=== PATIENT | female | born 1970 | race Caucasian/White ===

== ENCOUNTER 2022-01-07 12:09 | Emergency (ER) | payer MEDICAID ==
[~2022-01-07] VITALS: Ht 157.5 cm; Wt 79.0 kg
[2022-01-07 12:43] VITALS: BP 158/82
[2022-01-07] MEDS ORDERED: HYDROCODONE/ACETAMINOPHEN 5/325MG TABLET PO STA (13:18)
[2022-01-07] MEDS ORDERED: TRAM50TA3 PO (15:22)
[2022-01-07] MEDS ORDERED: NAPR-681 PO (15:22)
== END 2022-01-07 15:37 | disposition home or self-care (01) ==
LOC: ER 12:09
DX: M25.511 Pain in right shoulder (principal); M25.531 Pain in right wrist; E11.9 Type 2 diabetes mellitus without complications; I10 Essential (primary) hypertension
CPT/HCPCS: 73030; 81025; 99283

== ENCOUNTER 2023-11-16 10:33 | Emergency (ER) | payer MEDICAID ==
[~2023-11-16] VITALS: Ht 157.5 cm; Wt 81.6 kg
[~2023-11-16 10:33] MED LIST: NAPR-681 PO; TRAM50TA3 PO
[2023-11-16 10:54] VITALS: O2SAT 100
[2023-11-16 11:10] LABS: BASOPHILS % 0.6 % (0.0-2.0); EOSINOPHILS % 4.3 % (0.0-5.0); HEMATOCRIT. 36.6 % (36.0-48.0); HEMOGLOBIN. 12.5 g/dL (12.0-16.0); LYMPHOCYTES % 28.1 % (20.0-50.0); MEAN CORPUSCULAR VOLUME 88.3 fL (81.0-99.0); MEAN PLATELET VOLUME 8.2 fl (7.4-10.4); MONOCYTES % 7.3 % (2.0-8.0); NEUTROPHILS % 59.7 % (40.0-76.0); PLATELET 258 x1000/uL (130-400); RED BLOOD CELL COUNT 4.15 mill/uL (4.2-5.4); RED CELL DISTRIBUTION WIDTH 16.2 % (11.6-14.6); WHITE BLOOD COUNT 9.7 x1000/uL (4.5-11.0)
[2023-11-16 11:27] LABS: CARBON DIOXIDE 31 mEq/L (21-32); CHLORIDE 102 mEq/L (98-107); SODIUM 139 mEq/L (136-145)
[2023-11-16 11:28] LABS: CALCIUM 9.6 mg/dL (8.7-10.4)
[2023-11-16 11:33] LABS: CREATININE 0.8 mg/dL (0.6-1.0); GLUCOSE 108 mg/dL (70-105); TROPONIN I HIGH SENSITIVITY 6 ng/L (3.0-34); UREA NITROGEN BLOOD 10 mg/dL (9-23)
[2023-11-16 13:40] LABS: TROPONIN I HIGH SENSITIVITY 6 ng/L (3.0-34)
[2023-11-16 16:07] VITALS: BP 152/71; PULSE 63; RESP 20; TEMP 98.7
== END 2023-11-16 16:11 | disposition home or self-care (01) ==
LOC: ER 10:33
DX: B34.9 Viral infection, unspecified (principal); E11.9 Type 2 diabetes mellitus without complications; I10 Essential (primary) hypertension
CPT/HCPCS: 36415; 71045; 80048; 83880; 84484; 85025; 93005; 99285

== ENCOUNTER 2025-02-21 11:08 | Emergency (ER) | payer SELFPAY ==
[~2025-02-21] VITALS: Ht 162.6 cm; Wt 85.0 kg
[2025-02-21 12:05] VITALS: O2SAT 99
[2025-02-21] MEDS ORDERED: IBUP-2029 MT (13:01)
[2025-02-21 13:12] VITALS: BP 132/73; PULSE 83; RESP 20; TEMP 36.9; O2SAT 99
== END 2025-02-21 13:15 | disposition home or self-care (01) ==
LOC: ER 11:08
DX: S93.602A Unspecified sprain of left foot, initial encounter (principal); I10 Essential (primary) hypertension; E11.9 Type 2 diabetes mellitus without complications; X58.XXXA Exposure to other specified factors, initial encounter; Y93.89 Activity, other specified; Y92.89 Other specified places as the place of occurrence of the external cause; Y99.8 Other external cause status
CPT/HCPCS: 73630; 99283